=== PATIENT | male | born 1965 | race Hispanic/Latino ===

== ENCOUNTER 2017-10-13 22:07 | Emergency (ER) | payer OTHER, SELFPAY ==
--- NOTE | 2017-10-13 22:46 | RAD ---
CHEST TWO VIEW 10/13/17 HISTORY: Cough with congestion. COMPARISON: Chest one view from 05/16/17. FINDINGS: Lungs are clear. No pneumothorax or effusion. Cardiac silhouette and mediastinal contours are within normal limits. IMPRESSION: No acute intrathoracic abnormality. POS: [facility]
== END 2017-10-13 23:55 | disposition home or self-care (01) ==
LOC: ERS 22:07
DX: J20.9 Acute bronchitis, unspecified (principal); M06.9 Rheumatoid arthritis, unspecified; E11.9 Type 2 diabetes mellitus without complications; I10 Essential (primary) hypertension; F41.9 Anxiety disorder, unspecified; F17.210 Nicotine dependence, cigarettes, uncomplicated
CPT/HCPCS: 71020; 99406

== ENCOUNTER 2017-12-19 18:06 | Emergency (ER) | payer SELFPAY ==
[2017-12-19 18:25] LABS: #Basophils 0.1 thou/uL (0.0-0.2); #Eosinphils 0.3 thou/uL (0.0-0.7); #Lymphocytes 3.6 thou/uL (1.20-3.40); #Monocytes 0.7 thou/uL (0.11-0.59); #Neutrophils 3.9 thou/uL (1.40-6.50); %Basophils 1.1 % (0.0-1.0); %Eosinophils 3.2 % (0.0-10.0); %Monocytes 8.4 % (0.0-10.0); %Neutrophils 45.3 % (42.0-75.0); Hemoglobin 14.6 g/dL (14.0-18.0); Mean Platelet Volume 7.7 fL (7.4-10.4); Platelet Count 223 thou/uL (130-400); RBC Distribution Width 11.7 % (11.5-14.5); Red Blood Cell (RBC) Count 4.71 mill/uL (4.70-6.10); White Blood Cell (WBC) Count 8.5 thou/uL (4.8-10.8)
[2017-12-19 18:26] LABS: Bilirubin Negative (Negative); Blood, Urine Negative (Negative); Clarity CLEAR (Clear); Glucose, Urine (Dipstick) 100 mg/dL (Negative); Leukocyte Negative (Negative); Nitrite Negative (Negative); Protein, Urine (Dipstick) Negative (Neg-Trace); Specific Gravity, Urine 1.024 (1.002-1.036)
[2017-12-19 18:47] LABS: ALT (SGPT) 97 U/L (8-55); AST (SGOT) 54 U/L (5-34); Alkaline Phosphatase 108 U/L (40-150); Anion Gap 16 mmol/L (10-20); BUN (Urea Nitrogen) 21 mg/dL (8.4-25.7); Bilirubin, Total 0.3 mg/dL (0.2-1.2); Calc. Creatinine Clearance 0 mL/min (70-130); Calcium 9.5 mg/dL (7.8-10.44); Carbon Dioxide 22 mmol/L (22-29); Chloride 102 mmol/L (98-107); Estimated GFR-MDRD 62; Globulin 4.2 g/dL (2.4-3.5); Glucose 272 mg/dL (70-105); Potassium 3.9 mmol/L (3.5-5.1); Protein, Total 8.2 g/dL (6.0-8.3); Sodium 136 mmol/L (136-145)
[2017-12-19] MEDS ORDERED: Ketorolac Tromethamine 60 MG/2 ML VIAL ONE (22:57)
--- NOTE | 2017-12-19 23:23 | CT ---
CT ABDOMEN AND PELVIS 12/19/17 PROVIDED CLINICAL HISTORY: Abdominal pain. FINDINGS: Comparison is made with the study dated 05/21/14. The visualized lung bases are free of significant opacity. The solid abdominal organs are suboptimally evaluated without IV contrast material but demonstrate an unremarkable unenhanced CT appearance. There is no evidence for urinary tract calculi or hydronephrosis. There is no bowel dilatation, infla mmatory fat stranding, free fluid or free air apparent. Small bilateral fat containing inguinal herni as are seen. The osseous structures demonstrate no concerning osteoblastic or osteolytic lesions. IMPRESSION: No evidence for urinary tract calculi or hydronephrosis. POS: [facility]
== END 2017-12-20 01:03 | disposition home or self-care (01) ==
LOC: ERS 18:06
DX: R10.9 Unspecified abdominal pain (principal); I10 Essential (primary) hypertension; F41.9 Anxiety disorder, unspecified; F17.210 Nicotine dependence, cigarettes, uncomplicated; E11.9 Type 2 diabetes mellitus without complications
CPT/HCPCS: 36415; 74176; 80053; 81003; 83690; 85025; 96372; 99406; J1885

== ENCOUNTER 2018-07-02 09:16 | Emergency (ER) | payer SELFPAY ==
[2018-07-02 10:33] LABS: #Basophils 0.1 thou/uL (0.0-0.2); #Eosinphils 0.2 thou/uL (0.0-0.7); #Monocytes 0.5 thou/uL (0.11-0.59); #Neutrophils 3.1 thou/uL (1.40-6.50); %Eosinophils 3.4 % (0.0-10.0); %Lymphocytes 34.4 % (21.0-51.0); %Monocytes 7.6 % (0.0-10.0); %Neutrophils 53.6 % (42.0-75.0); Hemoglobin 13.5 g/dL (14.0-18.0); Mean Corpuscular HGB CONC 34.1 g/dL (32.0-36.0); Mean Corpuscular Hemoglobin 31.5 pg (27.0-31.0); Mean Corpuscular Volume 92.4 fL (78.0-98.0); Mean Platelet Volume 7.8 fL (7.4-10.4); Platelet Count 178 thou/uL (130-400); RBC Distribution Width 11.7 % (11.5-14.5); Red Blood Cell (RBC) Count 4.29 mill/uL (4.70-6.10); White Blood Cell (WBC) Count 5.9 thou/uL (4.8-10.8)
--- NOTE | 2018-07-02 10:50 | RAD ---
PORTABLE CHEST ONE VIEW: Date: 07-02-18 Time: 9:30 a.m. History: Weakness, headache, hypertension. FINDINGS: Comparison made with exam of 05-16-17. The heart size is normal. The lungs are expanded without focal areas of consolidation, pneumothorax o r pleural effusions. IMPRESSION: No radiographic evidence of acute cardiopulmonary process. POS: [facility]
--- NOTE | 2018-07-02 10:53 | CT ---
CT OF HEAD NONCONTRAST: Indication: Altered mental status with headache. FINDINGS: No evidence of intracranial hemorrhage, mass effect, midline shift, or ventriculomegaly. There is mil d paranasal sinus mucosal thickening. IMPRESSION: No acute intracranial hemorrhage or mass effect. POS: [facility]
[2018-07-02 10:56] LABS: ALT (SGPT) 119 U/L (8-55); AST (SGOT) 50 U/L (5-34); Albumin 3.5 g/dL (3.5-5.0); Alkaline Phosphatase 106 U/L (40-150); Anion Gap 13 mmol/L (10-20); BUN (Urea Nitrogen) 15 mg/dL (8.4-25.7); Bilirubin, Total 0.3 mg/dL (0.2-1.2); Calc. Creatinine Clearance 0 mL/min (70-130); Calcium 8.7 mg/dL (7.8-10.44); Carbon Dioxide 21 mmol/L (22-29); Chloride 105 mmol/L (98-107); Estimated GFR-MDRD 73; Globulin 3.6 g/dL (2.4-3.5); Glucose 285 mg/dL (70-105); Lipase 130 U/L (8-78); Potassium 3.9 mmol/L (3.5-5.1); Protein, Total 7.1 g/dL (6.0-8.3); Sodium 135 mmol/L (136-145)
[2018-07-02 11:02] LABS: CKMB 0.6 ng/mL (0-6.6); Troponin I Less than 0.010 ng/mL (< 0.028)
== END 2018-07-02 13:45 | disposition home or self-care (01) ==
LOC: ERS 09:16
DX: L03.213 Periorbital cellulitis (principal); E11.9 Type 2 diabetes mellitus without complications; I10 Essential (primary) hypertension; Z79.4 Long term (current) use of insulin; F41.9 Anxiety disorder, unspecified; F17.210 Nicotine dependence, cigarettes, uncomplicated; Z79.899 Other long term (current) drug therapy
CPT/HCPCS: 36415; 36416; 70450; 71045; 80053; 82553; 83690; 84484; 85025; 93005

== ENCOUNTER 2018-07-06 16:44 | Emergency (ER) | payer SELFPAY | END 2018-07-06 19:22 | disposition left against medical advice (07) | LOC: ERS 16:44 | DX: Z53.21 Procedure and treatment not carried out due to patient leaving prior to being seen by health care provider (principal) | CPT/HCPCS: 93005 ==

== ENCOUNTER 2019-10-24 01:25 | Emergency (ER) | payer OTHER ==
[2019-10-24 13:58] LABS: #Basophils 0.1 thou/uL (0.0-0.2); #Lymphocytes 2.2 thou/uL (1.20-3.40); #Monocytes 0.6 thou/uL (0.11-0.59); #Neutrophils 5.2 thou/uL (1.40-6.50); %Basophils 0.8 % (0.0-1.0); %Eosinophils 0.4 % (0.0-10.0); %Lymphocytes 26.7 % (21.0-51.0); %Monocytes 7.8 % (0.0-10.0); %Neutrophils 64.3 % (42.0-75.0); Hemoglobin 13.2 g/dL (14.0-18.0); Mean Corpuscular HGB CONC 34.3 g/dL (32.0-36.0); Mean Corpuscular Hemoglobin 31.7 pg (27.0-31.0); Mean Corpuscular Volume 92.6 fL (78.0-98.0); Mean Platelet Volume 7.7 fL (7.4-10.4); Platelet Count 215 thou/uL (130-400); RBC Distribution Width 11.7 % (11.5-14.5); Red Blood Cell (RBC) Count 4.17 mill/uL (4.70-6.10); White Blood Cell (WBC) Count 8.1 thou/uL (4.8-10.8)
[2019-10-24] MEDS ORDERED: Aspirin Chewable 81 MG TAB ONE (14:03)
[2019-10-24] MEDS ORDERED: Acetaminophen 500 MG TAB ONE (14:03)
--- NOTE | 2019-10-24 14:12 | RAD ---
Portable chest: HISTORY: Chest pain COMPARISON: none FINDINGS: Lung daniels are clear. Heart and mediastinum appear unremarkable. Vascularity is normal. Visualized osseous structures unremarkable. IMPRESSION: No acute finding
[2019-10-24 14:18] LABS: ALT (SGPT) 49 U/L (8-55); AST (SGOT) 31 U/L (5-34); Albumin 3.7 g/dL (3.5-5.0); Alkaline Phosphatase 77 U/L (40-110); Anion Gap 11 mmol/L (10-20); BUN (Urea Nitrogen) 15 mg/dL (8.4-25.7); Bilirubin, Total 0.5 mg/dL (0.2-1.2); CK (CPK) 44 U/L (30-200); Calc. Creatinine Clearance 0 mL/min (70-130); Calcium 8.9 mg/dL (7.8-10.44); Carbon Dioxide 26 mmol/L (22-29); Chloride 105 mmol/L (98-107); Estimated GFR-MDRD 86; Globulin 3.6 g/dL (2.4-3.5); Glucose 171 mg/dL (70-105); Protein, Total 7.3 g/dL (6.0-8.3); Sodium 138 mmol/L (136-145)
[2019-10-24 15:51] LABS: Troponin I 0.014 ng/mL (< 0.028)
== END 2019-10-24 16:00 | disposition home or self-care (01) ==
LOC: ERS 13:23
DX: R07.9 Chest pain, unspecified (principal); F41.9 Anxiety disorder, unspecified; F17.210 Nicotine dependence, cigarettes, uncomplicated; E11.9 Type 2 diabetes mellitus without complications; M06.9 Rheumatoid arthritis, unspecified; Z79.4 Long term (current) use of insulin
CPT/HCPCS: 71045; 80053; 82550; 84484; 85025; 93005

== ENCOUNTER 2020-01-27 17:33 | Observation (INO) | payer OTHER ==
[2020-01-27 17:59] LABS: #Basophils 0.1 thou/uL (0.0-0.2); #Eosinphils 0.2 thou/uL (0.0-0.7); #Monocytes 0.7 thou/uL (0.11-0.59); #Neutrophils 4.6 thou/uL (1.40-6.50); %Eosinophils 2.8 % (0.0-10.0); %Lymphocytes 35.1 % (21.0-51.0); %Neutrophils 53.1 % (42.0-75.0); Hemoglobin 14.6 g/dL (14.0-18.0); Mean Corpuscular HGB CONC 33.7 g/dL (32.0-36.0); Mean Corpuscular Hemoglobin 30.8 pg (27.0-31.0); Mean Corpuscular Volume 91.4 fL (78.0-98.0); Mean Platelet Volume 7.7 fL (7.4-10.4); Platelet Count 226 thou/uL (130-400); RBC Distribution Width 11.7 % (11.5-14.5); Red Blood Cell (RBC) Count 4.75 mill/uL (4.70-6.10); White Blood Cell (WBC) Count 8.6 thou/uL (4.8-10.8)
[2020-01-27] MEDS ORDERED: Ketorolac Tromethamine 30 MG/ML VIAL ONE (18:07)
[2020-01-27] MEDS ORDERED: Morphine 4 MG/ML VIAL ONE (18:07)
[2020-01-27 18:22] LABS: ALT (SGPT) 46 U/L (8-55); AST (SGOT) 22 U/L (5-34); Albumin 4.1 g/dL (3.5-5.0); Alkaline Phosphatase 114 U/L (40-110); Anion Gap 13 mmol/L (10-20); BUN (Urea Nitrogen) 21 mg/dL (8.4-25.7); Bilirubin, Total 0.4 mg/dL (0.2-1.2); CK (CPK) 57 U/L (30-200); Calc. Creatinine Clearance 0 mL/min (70-130); Calcium 9.6 mg/dL (7.8-10.44); Carbon Dioxide 27 mmol/L (22-29); Chloride 100 mmol/L (98-107); Estimated GFR-MDRD 67; Globulin 3.8 g/dL (2.4-3.5); Glucose 254 mg/dL (70-105); Lipase 70 U/L (8-78); Potassium 3.8 mmol/L (3.5-5.1); Protein, Total 7.9 g/dL (6.0-8.3); Sodium 136 mmol/L (136-145)
--- NOTE | 2020-01-27 18:42 | RAD ---
EXAM: CHEST ONE VIEW HISTORY: Chest pain and right shoulder pain. COMPARISON: 10/24/2019 FINDINGS: The cardiac silhouette and pulmonary vasculature is within normal limits. The lungs are clear. Chest is stable compared to prior study. IMPRESSION: No acute cardiopulmonary process.
--- NOTE | 2020-01-27 20:49 | ULT ---
RIGHT UPPER QUADRANT ULTRASOUND: History: Abdominal pain. Comparison: 05-17-17 FINDINGS: Pancreas is obscured by bowel gas. There is a prominent fold within the gallbladder, but no gallbladder calculus is seen. There is no ga llbladder wall thickening or pericholecystic fluid identified. Common duct measures 0.5 cm in diamete r which is within normal limits. The liver and visualized portions of the IVC demonstrate a normal sonographic appearance. The right kidney measures 9.8 cm in length. A tiny anechoic structure is seen at the junction of the mid portion of the inferior pole, left kidney, measuring less than 1 cm which probably represents a t iny cyst. There is no hydronephrosis seen on the left. There was a tiny echogenic focus in the gallbladder lumen on the prior exam which appeared to represe nt ring-down artifact, probably related to adenomyomatosis on the prior exam. However, this is not vi sualized on the current exam. IMPRESSION: 1. No gallbladder calculi are seen, and the common duct is normal in caliber. 2. Findings likely related to tiny exophytic cyst, right kidney. There is no hydronephrosis. POS: [facility]
[2020-01-27] MEDS ORDERED: Dextrose 5% in Water 1,000 ML IV PRN (21:30)
[2020-01-27] MEDS ORDERED: HumaLOG 300 UNITS/3 ML VIAL SC PRN (21:30)
[2020-01-27] MEDS ORDERED: Dextrose 50% Abboject 50 ML SYRINGE SLOW IVP PRN (21:30)
[2020-01-27] MEDS ORDERED: Aspirin 325 MG TAB ONE (21:32)
[2020-01-27] MEDS ORDERED: Nitroglycerin 0.4 MG TAB (25 Tab Bottle) PO PRN (21:33)
--- NOTE | 2020-01-27 21:39 | PDOC.HHP ---
Hospitalist HPI - History of Present Illness right shoulder/back pain History of Present Illness: Patient states he has had discomfort in the right side of his back by his shoulder blade x 1 week, worsening and now involving his right shoulder. States the pain is intermittent and affecting the right axilla region. 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 States he has had issues with back pain before for which he has gotten massages. He has tried taking ibuprofen at home without significant relief. States it is made worse with certain movements. Describes an aching that is constant which he is unable to quantify in terms of severity, though today it was 10/10, prompting him to come in. ED Course: He had an EKG done showing an incomplete RBB. CXR unremarkable. No acute cardiopulmonary process. Abdo US done showed tiny exophytic cyts involving the right kidney. Otherwise unremarkable. Given Aspirin 325 mg PO x 1. Toradol 30 mg IV and Morphine 4 mg which he states has eased his pain. Hospitalist ROS - Review of Systems Constitutional: denies: fever, chills, sweats, weakness, malaise, other Eyes: denies: pain, vision change, conjunctivae inflammation, eyelid inflammation, redness, other ENT: denies: ear pain, ear discharge, nose pain, nose discharge, nose congestion , mouth pain, mouth swelling, throat pain, throat swelling, other Respiratory: denies: cough, dry, shortness of breath, hemoptysis, SOB with excertion, pleuritic pain, sputum, wheezing, other Cardiovascular: denies: chest pain, palpitations, orthopnea, paroxysmal noc. dyspnea, edema, light headedness, other Gastrointestinal: denies: nausea, vomiting, abdominal pain, diarrhea, constipation, melena, hematochezia, other Genitourinary: denies: dysuria, frequency, incontinence, hematuria, retention, other Musculoskeletal: reports: back pain, other (right lateral chest wall pain involving the axillary region). denies: neck pain, shoulder pain, arm pain, hand pain, leg pain, foot pain Neurological: denies: weakness, numbness, incoordination, change in speech, confusion, seizures, other Hospitalist History - Past Medical History Cardiac: reports: HTN Psych: reports: Anxiety Rheumatologic: reports: Rheumatoid arthritis Endocrine: reports: Diabetes - Past Surgical History Past Surgical History: reports: Other (Cardiac cath, no stents) - Family History Family History: reports: no pertinent history - Social History Smoking Status: Current every day smoker Alcohol: reports: None Drugs: reports: none Living Situation: Alone Activity level: independent ambulation - Exam General Appearance: NAD Eye: PERRL, anicteric sclera ENT: normocephalic atraumatic, no oropharyngeal lesions, moist mucosa Neck: supple, symmetric, no JVD, no lymphadenopathy Heart: RRR, no murmur, no gallops, no rubs, normal peripheral pulses Respiratory: CTAB, no wheezes, no rales, no ronchi, normal chest expansion, no tachypnea Gastrointestinal: soft, non-tender, non-distended, normal bowel sounds, no palpable masses, no guarding, no rigidity Extremities: no edema Extremities - other findings: bulging in the right axillary region, mildly tender, no lymphadenopathy Skin: no lesions, no rashes Neurological: cranial nerve grossly intact, normal sensation to touch, no weakness Musculoskeletal: normal tone, normal strength, no muscle wasting Musculoskeletal - other findings: pain along right lateral chest wall/axilla w/ RUE ROM against resistance Psychiatric: normal affect, normal behavior, A&O x 3 Hospitalist Results - Labs Result Diagrams: 01/27/20 17:49 01/27/20 17:49 Lab results: WBC 8.6 thou/uL (4.8-10.8) 01/27/20 17:49 Hgb 14.6 g/dL (14.0-18.0) 01/27/20 17:49 Hct 43.4 % (42.0-52.0) 01/27/20 17:49 MCV 91.4 fL (78.0-98.0) 01/27/20 17:49 Plt Count 226 thou/uL (130-400) 01/27/20 17:49 Neutrophils % 53.1 % (42.0-75.0) 01/27/20 17:49 Sodium 136 mmol/L (136-145) 01/27/20 17:49 Potassium 3.8 mmol/L (3.5-5.1) 01/27/20 17:49 Chloride 100 mmol/L (98-107) 01/27/20 17:49 Carbon Dioxide 27 mmol/L (22-29) 01/27/20 17:49 BUN 21 mg/dL (8.4-25.7) 01/27/20 17:49 Creatinine 1.14 mg/dL (0.7-1.3) 01/27/20 17:49 Glucose 254 mg/dL (70-105) H 01/27/20 17:49 Calcium 9.6 mg/dL (7.8-10.44) 01/27/20 17:49 Total Bilirubin 0.4 mg/dL (0.2-1.2) 01/27/20 17:49 AST 22 U/L (5-34) 01/27/20 17:49 ALT 46 U/L (8-55) 01/27/20 17:49 Alkaline Phosphatase 114 U/L (40-110) H 01/27/20 17:49 Creatine Kinase 57 U/L (30-200) 01/27/20 17:49 Troponin I 0.013 ng/mL (< 0.028) 01/27/20 17:49 Serum Total Protein 7.9 g/dL (6.0-8.3) 01/27/20 17:49 Albumin 4.1 g/dL (3.5-5.0) 01/27/20 17:49 Lipase 70 U/L (8-78) 01/27/20 17:49 Hospitalist H&P A/P - Problem (1) Musculoskeletal chest pain Code(s): R07.89 - OTHER CHEST PAIN Status: Acute (2) Diabetes mellitus type 2 in obese Code(s): E11.69 - TYPE 2 DIABETES MELLITUS WITH OTHER SPECIFIED COMPLICATION; E66.9 - OBESITY, UNSPECIFIED Status: Chronic (3) Hypertension Code(s): I10 - ESSENTIAL (PRIMARY) HYPERTENSION Status: Chronic Qualifiers: Hypertension type: essential hypertension Qualified Code(s): I10 - Essential (primary) hypertension (4) Tobacco abuse Code(s): Z72.0 - TOBACCO USE Status: Chronic (5) Rheumatoid arthritis Code(s): M06.9 - RHEUMATOID ARTHRITIS, UNSPECIFIED Status: Acute - Plan Plan: Continue to trend troponins. Add-on TSH, Lipid panel in AM, and Mg+. Cardiac stress test (last one 2 years ago). Cardiac monitoring. MRI imaging to assess for rotator cuff injury. Monitor BP, resume home meds once verified. Monitor glucose, ISS. NPO at midnight. Gentle hydration. CODE STATUS: FULL, surrogate decision maker is his Tianna Lomeli.
[2020-01-27 21:54] LABS: Troponin I 0.012 ng/mL (< 0.028)
[2020-01-27] MEDS ORDERED: Sodium Chloride 0.9% 1,000 ML IV SCH (23:45)
[2020-01-28] MEDS ORDERED: HumaLOG 300 UNITS/3 ML VIAL ONE (00:29)
[2020-01-28 01:00] LABS: Troponin I 0.023 ng/mL (< 0.028)
[2020-01-28 03:26] LABS: #Basophils 0.1 thou/uL (0.0-0.2); #Eosinphils 0.4 thou/uL (0.0-0.7); #Lymphocytes 3.5 thou/uL (1.20-3.40); #Monocytes 0.8 thou/uL (0.11-0.59); #Neutrophils 3.3 thou/uL (1.40-6.50); %Basophils 0.9 % (0.0-1.0); %Eosinophils 4.8 % (0.0-10.0); %Monocytes 9.4 % (0.0-10.0); Hemoglobin 13.9 g/dL (14.0-18.0); Mean Corpuscular HGB CONC 34.1 g/dL (32.0-36.0); Mean Corpuscular Hemoglobin 31.1 pg (27.0-31.0); Mean Corpuscular Volume 91.1 fL (78.0-98.0); Mean Platelet Volume 8.3 fL (7.4-10.4); Platelet Count 208 thou/uL (130-400); RBC Distribution Width 11.6 % (11.5-14.5); Red Blood Cell (RBC) Count 4.46 mill/uL (4.70-6.10)
[2020-01-28 03:48] LABS: Anion Gap 10 mmol/L (10-20); BUN (Urea Nitrogen) 20 mg/dL (8.4-25.7); Calc. Creatinine Clearance 125 mL/min (70-130); Calcium 8.9 mg/dL (7.8-10.44); Carbon Dioxide 27 mmol/L (22-29); Chloride 102 mmol/L (98-107); Estimated GFR-MDRD 88; Glucose 319 mg/dL (70-105); Potassium 3.2 mmol/L (3.5-5.1); Sodium 136 mmol/L (136-145)
[2020-01-28] MEDS ORDERED: Acetaminophen 325 MG TAB ONE (05:44)
[2020-01-28] MEDS: HumaLOG 300 UNITS/3 ML VIAL SC PRN ×2 (06:09→17:11)
[2020-01-28] MEDS ORDERED: Diazepam 5 MG TAB PO SCH ×2 (08:15→12:45)
[2020-01-28 08:54] VITALS: BMI 30.1
[2020-01-28] MEDS ORDERED: Aspirin 81 mg Enteric Coated Tablet PO SCH (09:00)
[2020-01-28] MEDS ORDERED: FLU VACC QS2019-20(6MOS UP)/PF 60 MCG/0.5 ML SYRINGE IM ONE (09:00)
[2020-01-28] MEDS ORDERED: ADENOSINE 60 MG/20 ML VIAL ONE (09:40)
[2020-01-28] MEDS ORDERED: Potassium Chloride 20 MEQ TAB PO SCH (12:45)
--- NOTE | 2020-01-28 13:27 | NM ---
CARDIAC SPECT: CLINICAL HISTORY: 53-year-old male with acute coronary syndrome. Diabetes. Hypertension. Smoker. TECHNIQUE: A myocardial perfusion scan was performed using the single isotope one day protocol with technetium-9 9m sestamibi. 10 mCi were injected intravenously for the rest exam followed by 33 mCi for the stress exam. Pharmacologic stress with Adenosine was monitored and interpreted by Dr. Bateman. FINDINGS: There is good tracer localization in the myocardial segments on both stress and rest images without f ixed or reversible defects. GATED SPECT LVEF: 64%. WALL MOTION EXAM: Normal. IMPRESSION: Normal myocardial perfusion scan. POS: [facility]
[2020-01-28 13:48] VITALS: BP 164/95; TEMP 98
--- NOTE | 2020-01-28 13:54 | MRI ---
MRI RIGHT SHOULDER WITHOUT CONTRAST: 01/28/20 HISTORY: Axillary bulge. COMPARISON: None. FINDINGS: BICEPS TENDON: Extra-articular biceps tendon is normal. Moderate intra-articular tendinosis and interstitial tearing . LABRUM: There is a labral tear throughout the superior labrum anterior-posterior to the biceps labral expansi on. Tear extending to the undersurface of the biceps tendon. ROTATOR CUFF: Mild tendinosis supraspinatus and infraspinatus tendons without a full thickness perforation. Some mi ld bursal surface fraying of the supraspinatus and infraspinatus tendon. BONES: Type III narrowing subacromial space. Moderate degenerative disease acromioclavicular joint. Normal g lenoid version. MUSCLES: The muscle signal and bulk is normal. SOFT TISSUES: There is a loculated paralabral ganglion pseudocyst extending from the posterior superior labrum magda g the spinal glenoid notch. There is also extension to the suprascapular notch. IMPRESSION: 1. Superior labral tear anterior-posterior to biceps labral expansion with paralabral ganglion c yst extending from 10 o'clock - 11 o'clock, loculated, extending to the spinoglenoid and suprascapula r notch. No evidence for muscle atrophy to suggest neurovascular impingement. This ganglion cyst dawson ures 1 cm in transverse x 2 cm in craniocaudal dimension with a width of 1.8 cm. 2. Type III acromion with mild narrowing of the subacromial space, subsequent small reactive sub acromial/subdeltoid bursal effusion, mild bursal surface fraying supraspinatus tendon and infraspinat us tendon. 3. Moderate degenerative disease, acromioclavicular joint. 4. No muscle atrophy. POS: [facility]
[2020-01-28] MEDS ORDERED: Gabapentin 300 MG CAP PO SCH (15:00)
[2020-01-28] MEDS ORDERED: Non-Formulary Item 1 EACH (Insulin Glargine,Hum.Rec.Anlog [Lantus Solostar] 50 UNIT) SQ SCH (21:00)
[2020-01-28] MEDS ORDERED: Insulin Glargine 50 UNITS in Pre-Filled Syringe SC SCH (21:00)
[2020-01-29] MEDS ORDERED: Lisinopril 20 MG TAB PO SCH (09:00)
[2020-01-29] MEDS ORDERED: Lisinopril 2.5 MG TAB PO SCH (09:00)
--- NOTE | 2020-01-29 14:19 | DIS ---
DATE OF ADMISSION: 01/27/2020 DATE OF DISCHARGE: 01/28/2020 DISCHARGE DIAGNOSES: As of the followin. Right-sided shoulder pain and back pain. 2. Hypertension and diabetes, which are chronic. 3. Tobacco abuse. HOSPITAL COURSE: Patient is a 54-year-old male who initially presented to the hospital with complaints of right-sided shoulder pain and back pain. Given his risk factors, he was worked up for possible cardiac disease. At this time, all his troponin x3 were negative. He underwent a stress test, which was normal with EF of 64%. Given the fact patient has significant pain to his right shoulder, he underwent an upper extremity MRI which indicated a superficial labral tear, anterior posterior to biceps labral expansion with paralabral ganglion cyst extending from 10 o'clock to 11 o'clock loculated, extending to the spinoglenoid and suprascapular notch. At this time, I did speak with Ortho regarding this MRI, who recommended to make an appointment with Orthopedics as outpatient. I actually did make an appointment with Dr. Henry on Monday. There were some concerns for possible workmen's comp. However, the patient initially came in with this pain in his shoulder for the past week. I will defer that to the patient and his employer. The patient also had an abdominal ultrasound for abdominal pain which indicated no gallbladder calculi were seen. The common bile duct was normal. He was noted to have a small tiny exophytic cyst on the right kidney. No hydronephrosis was noted. This was discussed with the patient and the patient's . He will follow up with his primary and also with Orthopedics on Monday. HOME MEDICATIONS: Will be: 1. Tylenol No. 3 with Codeine 1 tab q.6 hours p.r.n. 2. Flexeril 10 mg t.i.d. 3. Colace mg daily p.r.n. 4. Lisinopril 20 mg daily. 5. Lantus 50 units q.p.m. 6. Metformin 1000 b.i.d. 7. Gabapentin one p.o. t.i.d. PHYSICAL EXAMINATION: VITAL SIGNS: Temperature of 98.0, 77, 164/95, 16, and 97% on room air. GENERAL: He is awake, alert, and oriented x3. Does not appear in distress. CV: S1, S2 present. No murmurs, rubs, or gallops. His right shoulder pain he continues to have, however, it is improved than before. He also during the hospital stay had significantly elevated blood pressure. I did increase his lisinopril and I have asked him to keep a diary of his blood pressures and to follow up with his primary for additional blood pressure medications if his blood pressure continues to be elevated. However, his blood pressure being elevated could be secondary to his pain also. Job ID: [id number]
--- NOTE | 2020-02-01 18:22 | EKG ---
Test Reason : Blood Pressure : / mmHG Vent. Rate : 090 BPM Atrial Rate : 090 BPM P-R Int : 144 ms QRS Dur : 100 ms QT Int : 358 ms P-R-T Axes : 030 -19 007 degrees QTc Int : 437 ms Normal sinus rhythm Incomplete right bundle branch block Borderline ECG Confirmed by VICENTA MARLEY ([id number]), acquisition editor MIKE OLEARY ([id number]) on 02/01/2020 6:22:12 PM Referred By: Confirmed By:VICENTA MARLEY
== END 2020-01-28 17:52 | disposition home or self-care (01) ==
LOC: ERS 17:33 → ERHOLD 20:13 → 2SW 01-28 08:40
PROVIDERS: ADMIT Emergency Medicine; ATTEND Emergency Medicine
DX: M25.511 Pain in right shoulder (principal); M54.9 Dorsalgia, unspecified; I10 Essential (primary) hypertension; E11.9 Type 2 diabetes mellitus without complications; F17.210 Nicotine dependence, cigarettes, uncomplicated; F41.9 Anxiety disorder, unspecified; M06.9 Rheumatoid arthritis, unspecified; N28.1 Cyst of kidney, acquired; S43.431A Superior glenoid labrum lesion of right shoulder, initial encounter; M67.411 Ganglion, right shoulder; M19.011 Primary osteoarthritis, right shoulder; I45.10 Unspecified right bundle-branch block; R07.89 Other chest pain; E66.9 Obesity, unspecified; Z68.30 Body mass index [BMI] 30.0-30.9, adult; Z79.4 Long term (current) use of insulin; Z79.899 Other long term (current) drug therapy; X58.XXXA Exposure to other specified factors, initial encounter
CPT/HCPCS: 36415; 36416; 71045; 76705; 78452; 80048; 80053; 82550; 83690; 83735; 83880; 84443; 84484; 85025; 93005; 93017; 94760; 96374; 96375; A9500; G0378; J0153; J1815; J1885; J2270; J3475; J3490

== ENCOUNTER 2020-05-15 05:19 | Emergency (ER) | payer OTHER | END 2020-05-15 05:50 | disposition home or self-care (01) | LOC: ERS 05:19 | DX: R09.81 Nasal congestion (principal); E11.9 Type 2 diabetes mellitus without complications; I10 Essential (primary) hypertension; F41.9 Anxiety disorder, unspecified; F17.210 Nicotine dependence, cigarettes, uncomplicated; Z20.828 Contact with and (suspected) exposure to other viral communicable diseases; Z79.4 Long term (current) use of insulin; Z79.899 Other long term (current) drug therapy | CPT/HCPCS: 99283 ==

== ENCOUNTER 2020-05-18 09:56 | Emergency (ER) | payer OTHER ==
[2020-05-18 10:55] LABS: #Basophils 0.1 thou/uL (0.0-0.2); #Lymphocytes 1.9 thou/uL (1.20-3.40); #Monocytes 0.5 thou/uL (0.11-0.59); #Neutrophils 3.7 thou/uL (1.40-6.50); %Basophils 1.1 % (0.0-1.0); %Eosinophils 0.3 % (0.0-10.0); %Lymphocytes 30.8 % (21.0-51.0); %Monocytes 8.6 % (0.0-10.0); %Neutrophils 59.2 % (42.0-75.0); Mean Corpuscular HGB CONC 33.1 g/dL (32.0-36.0); Mean Corpuscular Hemoglobin 29.9 pg (27.0-31.0); Mean Corpuscular Volume 90.4 fL (78.0-98.0); Mean Platelet Volume 8.3 fL (7.4-10.4); Platelet Count 168 thou/uL (130-400); Red Blood Cell (RBC) Count 5.01 mill/uL (4.70-6.10); White Blood Cell (WBC) Count 6.2 thou/uL (4.8-10.8)
[2020-05-18 11:22] LABS: ALT (SGPT) 27 U/L (8-55); AST (SGOT) 27 U/L (5-34); Albumin 3.9 g/dL (3.5-5.0); Alkaline Phosphatase 74 U/L (40-110); Anion Gap 14 mmol/L (10-20); BUN (Urea Nitrogen) 16 mg/dL (8.4-25.7); Bilirubin, Total 0.4 mg/dL (0.2-1.2); Calc. Creatinine Clearance 0 mL/min (70-130); Carbon Dioxide 23 mmol/L (22-29); Chloride 105 mmol/L (98-107); Estimated GFR-MDRD 69; Globulin 4.3 g/dL (2.4-3.5); Glucose 107 mg/dL (70-105); Potassium 3.7 mmol/L (3.5-5.1); Protein, Total 8.2 g/dL (6.0-8.3); Sodium 138 mmol/L (136-145)
--- NOTE | 2020-05-18 12:41 | RAD ---
CHEST 1 VIEW: HISTORY: Positive COVID, dyspnea, hemoptysis. FINDINGS: Minimal patchy ground-glass opacity changes noted in the right mid and left upper lung zones, nonspec ific but certainly could be consistent with atypical pneumonia including COVID-19. Heart size is nor mal. No confluent pneumonia. No pleural effusion. IMPRESSION: Minimal patchy ground-glass opacity changes bilaterally with appropriate history could certainly be c onsistent with COVID-19. Atherosclerosis of the aorta. POS: [facility]
== END 2020-05-18 12:23 | disposition home or self-care (01) ==
LOC: ERS 09:56
DX: U07.1 COVID-19 (principal); R04.2 Hemoptysis; F17.210 Nicotine dependence, cigarettes, uncomplicated; M06.9 Rheumatoid arthritis, unspecified; E11.9 Type 2 diabetes mellitus without complications; I10 Essential (primary) hypertension; Z79.4 Long term (current) use of insulin; Z79.899 Other long term (current) drug therapy
CPT/HCPCS: 71045; 80053; 85025